=== PATIENT | female | born 1985 | race Caucasian/White ===

== ENCOUNTER 2023-07-12 18:10 | Inpatient (IN) | payer OTHER ==
[~2023-07-12] VITALS: Ht 167.6 cm; Wt 103.0 kg
[2023-07-12 18:45] VITALS: BP 141/89
[2023-07-12] MEDS ORDERED: Ondansetron Hydrochloride 4 MG/2 ML VIAL IV ONE (19:10)
[2023-07-12] MEDS ORDERED: SODIUM CHLORIDE 0.9% 1,000 ML IV ONE ×2 (19:10→23:35)
[2023-07-12 19:34] LABS: HEMATOCRIT 42.3 % (37.0-47.0); MEAN CELL VOLUME 100.7 fl (81.0-99.0); MEAN CORPUSCULAR HGB CONC 35.7 g/dl (33.0-37.0); MEAN PLATELET VOLUME 9.2 fl (9.6-12.3); PLATELET COUNT AUTOMATED 234 10*3/uL (130-400); RED CELL DISTRI WIDTH 12.5 % (0-14.5)
[2023-07-12 19:35] LABS: MANUAL DIFF REFLEX YES
[2023-07-12 19:44] LABS: BILIRUBIN 2+ (Negative); BLOOD 3+ (Negative); CLARITY Cloudy (Clear); COLOR Orange (Yellow); GLUCOSE Trace (Negative); KETONE 3+ (Negative); LEUKO ESTERASE 1+ (Negative); NITRITE Positive (Negative); PH 5.5 (4.5-8.0); SPECIFIC GRAVITY >= 1.030 (1.001-1.030)
[2023-07-12 19:50] LABS: ALKALINE PHOSPHATASE 95 U/L (46-116); BUN 9 mg/dl (9-23); CHLORIDE 95 mmol/L (98-107); LIPASE 27 U/L (12-53); POTASSIUM 3.4 mmol/L (3.4-5.1); SGPT/ALT 94 U/L (5-49)
[2023-07-12 19:52] LABS: BACTERIA 1+; MUCOUS 1+
[2023-07-12 20:00] LABS: PLATELET SUFFICIENCY NORMAL (NORMAL); TOTAL CELLS COUNTED 100 #CELLS
[2023-07-12] MEDS ORDERED: IOHEXOL 350 MG/ML 100 ML VIAL IV ONE ×2 (20:10→20:34)
[2023-07-12] MEDS ORDERED: SODIUM CHLORIDE 0.9% 100 ML BAG IV ONE (20:10)
[2023-07-12] MEDS ORDERED: SODIUM CHLORIDE 0.9% 1,000 ML IV SCH (20:25)
[2023-07-12] MEDS ORDERED: SODIUM CHLORIDE 0.9% 100 ML IV ONE (20:34)
[2023-07-12] MEDS ORDERED: AZITHROMYCIN 250 ML IV ONE (22:55)
[2023-07-12] MEDS ORDERED: Ceftriaxone Sodium 1 GM/10 ML SYR IV ONE (22:55)
[2023-07-12] MEDS ORDERED: MULTIVITAMIN CONCENTRATE (IV) 10 ML,Thiamine 100 MG,FOLIC ACID 1 MG in SODIUM CHLORIDE ... IV ONE (22:55)
[2023-07-12] MEDS ORDERED: Ondansetron Hydrochloride 4 MG/2 ML VIAL IV PRN (23:30)
[2023-07-12] MEDS ORDERED: hydrOXYzine 50 MG CAP PO PRN (23:35)
[2023-07-12] MEDS ORDERED: Nicotine 21 MG PATCH T PRN (23:40)
[2023-07-13] VITALS (7 sets, daily range): BP systolic 103–123; BP diastolic 55–71
[2023-07-13] MEDS ORDERED: LORazepam 1 MG TAB PO SCH ×3 (04:00)
[2023-07-13 05:31] LABS: ALKALINE PHOSPHATASE 75 U/L (46-116); BUN 7 mg/dl (9-23); CHLORIDE 103 mmol/L (98-107); CHOLESTEROL 111 mg/dL (<200); LDL CHOLESTEROL 61 mg/dL (9-159); POTASSIUM 3.4 mmol/L (3.4-5.1); SGPT/ALT 58 U/L (5-49); TRIGLYCERIDES 81 mg/dl (<150)
[2023-07-13 06:17] LABS: HEMATOCRIT 35.5 % (37.0-47.0); MEAN CELL VOLUME 102.9 fl (81.0-99.0); MEAN CORPUSCULAR HGB 35.9 pg (27.0-31.0); MEAN CORPUSCULAR HGB CONC 34.9 g/dl (33.0-37.0); PLATELET COUNT AUTOMATED 200 10*3/uL (130-400); RED BLOOD COUNT 3.45 10*6/uL (4.10-5.10); RED CELL DISTRI WIDTH 12.6 % (0-14.5); WHITE BLOOD COUNT 13.7 10*3/uL (4.8-10.8)
[2023-07-13 06:26] LABS: MANUAL DIFF REFLEX YES
[2023-07-13] MEDS ORDERED: POTASSIUM PHOSPHATE 40 MMOL in SODIUM CHLORIDE 0.9% 500 ML IV ONE (07:30)
[2023-07-13 07:42] LABS: BURR CELLS MODERATE; PLATELET SUFFICIENCY NORMAL (NORMAL); POLYCHROMASIA SLIGHT; TOTAL CELLS COUNTED 100 #CELLS
[2023-07-13] MEDS ORDERED: Phosphorus/Potassium 1.45 GM PACKET PO SCH (08:00)
[2023-07-13] MEDS ORDERED: ACETAMINOPHEN 325 MG TAB PO PRN (08:15)
[2023-07-13] MEDS ORDERED: Water, Sterile 10 ML VIAL ONE (09:04)
[2023-07-13 09:37] LABS: VITAMIN D, 25-HYDROXY 17.9 ng/mL (30-100)
[2023-07-13] MEDS ORDERED: AZITHROMYCIN 250 ML IV SCH (10:00)
[2023-07-13] MEDS ORDERED: Ceftriaxone Sodium 1 GM in SYRINGE INFUSION 10 ML IV SCH (10:00)
[2023-07-13] MEDS ORDERED: Enoxaparin Sodium 40 MG/0.4 ML SYR SC SCH (10:00)
[2023-07-13] MEDS ORDERED: ACETAMINOPHEN 500 MG TAB PO PRN (17:55)
[2023-07-13] MEDS ORDERED: IBUPROFEN 600 MG TAB PO PRN (17:55)
[2023-07-13] MEDS ORDERED: Sennosides A and B 8.6 MG TAB PO PRN (17:55)
[2023-07-13] MEDS ORDERED: NICOTINE POLACRILEX 4 MG GUM PO PRN (17:55)
[2023-07-13] MEDS ORDERED: Nicotine 21 MG PATCH T PRN (17:55)
[2023-07-13] MEDS ORDERED: Ondansetron Hydrochloride 4 MG/2 ML VIAL IV SCH (20:00)
[2023-07-14] VITALS: BP 109/68
[2023-07-14] MEDS ORDERED: LORazepam 1 MG TAB PO PRN
[2023-07-14] MEDS ORDERED: LORazepam 1 MG TAB PO SCH (06:00)
[2023-07-14 06:26] LABS: BASO % 0.3 % (0.0-1.0); EOS % 0.6 % (1.0-4.0); HEMATOCRIT 36.6 % (37.0-47.0); LYMPH # 1.3 10*3/uL (1.3-4.4); LYMPH % 18.9 % (27.0-41.0); MEAN CELL VOLUME 104.3 fl (81.0-99.0); MEAN CORPUSCULAR HGB 35.6 pg (27.0-31.0); MEAN CORPUSCULAR HGB CONC 34.2 g/dl (33.0-37.0); MEAN PLATELET VOLUME 10.1 fl (9.6-12.3); MONO # 0.4 10*3/uL (0.1-1.0); MONO % 6.1 % (3.0-9.0); NEUT % 73.5 % (47.0-73.0); PLATELET COUNT AUTOMATED 205 10*3/uL (130-400); RED BLOOD COUNT 3.51 10*6/uL (4.10-5.10); RED CELL DISTRI WIDTH 12.7 % (0-14.5); WHITE BLOOD COUNT 6.7 10*3/uL (4.8-10.8)
[2023-07-14 06:36] LABS: ALKALINE PHOSPHATASE 69 U/L (46-116); CHLORIDE 107 mmol/L (98-107); POTASSIUM 3.3 mmol/L (3.4-5.1); SGPT/ALT 44 U/L (5-49)
[2023-07-14 06:38] LABS: BUN < 5 mg/dl (9-23)
[2023-07-14 08:00] VITALS: BP 113/71
[2023-07-14] MEDS ORDERED: POTASSIUM CHLORIDE IN WATER 100 ML IV SCH (08:00)
[2023-07-14] MEDS ORDERED: Cholecalciferol 5,000 IU CAP (125 MCG) PO SCH (10:00)
[2023-07-14] MEDS ORDERED: Thiamine 100 MG TAB PO SCH (10:00)
[2023-07-14] MEDS ORDERED: FOLIC ACID 1 MG TAB PO SCH (10:00)
[2023-07-14] MEDS ORDERED: MULTIVITAMIN 1 TAB TAB PO SCH (10:00)
[2023-07-14 12:00] VITALS: BP 121/63
[2023-07-14] MEDS ORDERED: VITAMIN D3125 MC1 PO (15:58)
[2023-07-14] MEDS ORDERED: VIBRA-TAB100 MG PO (15:58)
[2023-07-14 16:00] VITALS: BP 115/69
[2023-07-14] MEDS ORDERED: VISTARIL25 MG PO (16:48)
[2023-07-15] MEDS ORDERED: LORazepam 1 MG TAB PO PRN
== END 2023-07-14 17:30 | disposition home or self-care (01) | DRG 720 ==
LOC: ED 18:10 → EDHOLD 23:05 → 4E 23:05
PROVIDERS: Internal Medicine; Physician Assistant Medical; Student in an Organized Health Care Education/Training Program; ADMIT Internal Medicine; ATTEND Internal Medicine
DX: A41.9 Sepsis, unspecified organism (principal); J15.9 Unspecified bacterial pneumonia; E87.1 Hypo-osmolality and hyponatremia; E86.0 Dehydration; I10 Essential (primary) hypertension; F17.210 Nicotine dependence, cigarettes, uncomplicated; F12.90 Cannabis use, unspecified, uncomplicated; F10.239 Alcohol dependence with withdrawal, unspecified; E11.65 Type 2 diabetes mellitus with hyperglycemia; K80.20 Calculus of gallbladder without cholecystitis without obstruction; R74.01 Elevation of levels of liver transaminase levels; N30.01 Acute cystitis with hematuria; R65.20 Severe sepsis without septic shock; E80.6 Other disorders of bilirubin metabolism; K76.0 Fatty (change of) liver, not elsewhere classified; E66.9 Obesity, unspecified; Z82.49 Family history of ischemic heart disease and other diseases of the circulatory system; Z68.36 Body mass index [BMI] 36.0-36.9, adult; Z79.899 Other long term (current) drug therapy; Z79.01 Long term (current) use of anticoagulants; Z79.2 Long term (current) use of antibiotics; Z79.84 Long term (current) use of oral hypoglycemic drugs; Z71.6 Tobacco abuse counseling; Y90.0 Blood alcohol level of less than 20 mg/100 ml

== ENCOUNTER 2024-06-18 17:21 | Emergency (ER) | payer OTHER ==
[~2024-06-18] VITALS: Ht 167.6 cm; Wt 68.0 kg
[~2024-06-18 17:21] MED LIST: VIBRA-TAB100 MG PO; VISTARIL25 MG PO; VITAMIN D3125 MC1 PO
[2024-06-18] MEDS ORDERED: Ondansetron Hydrochloride 4 MG/2 ML VIAL IV ONE (19:30)
[2024-06-18] MEDS ORDERED: SODIUM CHLORIDE 0.9% 1,000 ML IV ONE (19:30)
[2024-06-18] MEDS ORDERED: Ondansetron4 MG PO (22:09)
== END 2024-06-18 22:11 | disposition home or self-care (01) ==
LOC: ED 17:21
DX: K52.9 Noninfective gastroenteritis and colitis, unspecified (principal); R11.2 Nausea with vomiting, unspecified; F17.210 Nicotine dependence, cigarettes, uncomplicated; Z79.899 Other long term (current) drug therapy

== ENCOUNTER → 2024-10-04 | Outpatient (CLI) | payer OTHER ==
[~2024-10-04] MED LIST changes: +Ondansetron4 MG PO
== END | disposition home or self-care (01) ==
LOC: RAD 11:28
PROVIDERS: ATTEND Family Medicine
DX: M47.817 Spondylosis without myelopathy or radiculopathy, lumbosacral region (principal); M46.1 Sacroiliitis, not elsewhere classified; M54.50 Low back pain, unspecified